=== PATIENT | female | born 1980 | race Caucasian/White ===

== ENCOUNTER → 2016-12-03 | Outpatient (REF) | payer BC ==
[2016-12-03 17:06] LABS: FREE T4 1.16 NG/DL (0.76-1.46)
== END ==
LOC: M LABDRAW1 15:38
PROVIDERS: ATTEND Internal Medicine Endocrinology, Diabetes & Metabolism
DX: E05.00 Thyrotoxicosis with diffuse goiter without thyrotoxic crisis or storm (principal)

== ENCOUNTER → 2017-02-14 | Outpatient (REF) | payer BC ==
[2017-02-14 16:44] LABS: FREE T4 1.28 NG/DL (0.76-1.46)
== END ==
LOC: M LABDRAW1 15:53
PROVIDERS: ATTEND Internal Medicine Endocrinology, Diabetes & Metabolism
DX: E05.00 Thyrotoxicosis with diffuse goiter without thyrotoxic crisis or storm (principal)

== ENCOUNTER → 2017-03-05 | Outpatient (REF) | payer BC ==
[2017-03-05 17:45] LABS: PROGESTERONE 32.7 NG/ML
== END ==
LOC: M LAB REF 12:42
PROVIDERS: ATTEND Obstetrics & Gynecology
DX: O36.80X0 Pregnancy with inconclusive fetal viability, not applicable or unspecified (principal); Z3A.00 Weeks of gestation of pregnancy not specified

== ENCOUNTER → 2017-03-08 | Outpatient (REF) | payer BC | LOC: M LABDRAWC 12:04 | PROVIDERS: ATTEND Obstetrics & Gynecology | DX: O02.81 Inappropriate change in quantitative human chorionic gonadotropin (hCG) in early pregnancy (principal) ==

== ENCOUNTER → 2017-03-15 | Outpatient (REF) | payer BC | LOC: M LABDRAWC 11:20 | PROVIDERS: ATTEND Obstetrics & Gynecology | DX: O02.81 Inappropriate change in quantitative human chorionic gonadotropin (hCG) in early pregnancy (principal) ==

== ENCOUNTER → 2017-03-28 | Outpatient (REF) | payer BC ==
[2017-03-28 17:51] LABS: MEAN CORPUSCULAR HGB CONC 34.2 g/dl (32.0-36.5); MEAN CORPUSCULAR VOLUME 90.8 fl (80.0-96.0); RED CELL DISTRIBUTION WIDTH 13.3 % (11.5-14.5); WHITE BLOOD COUNT 5.3 K/mm3 (4.0-10.0)
== END ==
LOC: M LABDRAWC 16:41
PROVIDERS: ATTEND Obstetrics & Gynecology
DX: O36.80X0 Pregnancy with inconclusive fetal viability, not applicable or unspecified (principal)

== ENCOUNTER → 2017-04-01 | Outpatient (REF) | payer BC | LOC: M LAB REF 16:35 | PROVIDERS: ATTEND Obstetrics & Gynecology | DX: Z34.91 Encounter for supervision of normal pregnancy, unspecified, first trimester (principal) ==

== ENCOUNTER → 2017-04-25 | Outpatient (REF) | payer BC ==
[2017-04-26 12:32] LABS: FREE T4 1.46 NG/DL (0.76-1.46)
== END ==
LOC: M LABDRAWC 11:41
PROVIDERS: ATTEND Internal Medicine Endocrinology, Diabetes & Metabolism
DX: E89.0 Postprocedural hypothyroidism (principal)

== ENCOUNTER → 2017-06-14 | Outpatient (REF) | payer BC ==
[2017-06-14 12:12] LABS: FREE T4 1.66 NG/DL (0.76-1.46)
== END ==
LOC: M LAB REF 08:40
PROVIDERS: ATTEND Internal Medicine Endocrinology, Diabetes & Metabolism
DX: E89.0 Postprocedural hypothyroidism (principal)

== ENCOUNTER → 2017-07-19 | Outpatient (REF) | payer BC | LOC: M LAB REF 11:15 | PROVIDERS: ATTEND Internal Medicine Endocrinology, Diabetes & Metabolism | DX: E89.0 Postprocedural hypothyroidism (principal) ==

== ENCOUNTER → 2017-08-14 | Outpatient (CLI) | payer BC ==
[2017-08-14 11:54] LABS: MEAN CORPUSCULAR HEMOGLOBIN 28.3 pg (27.0-33.0); MEAN CORPUSCULAR HGB CONC 32.8 g/dl (32.0-36.5); MEAN CORPUSCULAR VOLUME 86.2 fl (80.0-96.0); PLATELET COUNT, AUTOMATED 191 10^3/uL (150-450); RED CELL DISTRIBUTION WIDTH 12.8 % (11.5-14.5); WHITE BLOOD COUNT 10.4 10^3/uL (4.0-10.0)
== END ==
LOC: M LAB 09:24
PROVIDERS: ATTEND Obstetrics & Gynecology
DX: Z34.82 Encounter for supervision of other normal pregnancy, second trimester (principal); Z3A.24 24 weeks gestation of pregnancy

== ENCOUNTER → 2017-09-03 | Outpatient (REF) | payer BC ==
[2017-09-03 16:15] LABS: FREE T4 1.36 NG/DL (0.76-1.46)
== END ==
LOC: M LAB REF 15:18
PROVIDERS: ATTEND Obstetrics & Gynecology
DX: Z34.83 Encounter for supervision of other normal pregnancy, third trimester (principal)

== ENCOUNTER → 2017-10-10 | Outpatient (REF) | payer BC ==
[2017-10-10 13:17] LABS: MEAN CORPUSCULAR HEMOGLOBIN 25.3 pg (27.0-33.0); MEAN CORPUSCULAR HGB CONC 31.9 g/dl (32.0-36.5); MEAN CORPUSCULAR VOLUME 79.4 fl (80.0-96.0); PLATELET COUNT, AUTOMATED 200 10^3/uL (150-450); RED CELL DISTRIBUTION WIDTH 14.6 % (11.5-14.5); WHITE BLOOD COUNT 7.6 10^3/uL (4.0-10.0)
[2017-10-10 13:51] LABS: ALT/SGPT 29 U/L (12-78); AST/SGOT 33 U/L (7-37); BILIRUBIN,TOTAL < 0.1 MG/DL (0.2-1.0); CREATININE FOR GFR 0.54 MG/DL (0.55-1.02); GLOMERULAR FILTRATION RATE > 60.0 (>60); URIC ACID 2.9 MG/DL (2.6-6.0)
== END ==
LOC: M LAB REF 12:52
PROVIDERS: ATTEND Obstetrics & Gynecology
DX: O09.893 Supervision of other high risk pregnancies, third trimester (principal); O09.513 Supervision of elderly primigravida, third trimester; Z3A.00 Weeks of gestation of pregnancy not specified

== ENCOUNTER → 2017-10-11 | Outpatient (REF) | payer BC | LOC: M LAB REF 12:19 | PROVIDERS: ATTEND Obstetrics & Gynecology | DX: O09.893 Supervision of other high risk pregnancies, third trimester (principal); O09.513 Supervision of elderly primigravida, third trimester ==

== ENCOUNTER → 2017-10-15 | Outpatient (REF) | payer BC | LOC: M LAB REF 12:57 | PROVIDERS: ATTEND Obstetrics & Gynecology | DX: O09.513 Supervision of elderly primigravida, third trimester (principal); Z3A.36 36 weeks gestation of pregnancy ==

== ENCOUNTER 2017-11-05 05:52 | Inpatient (IN) | payer BC ==
[2017-11-05 07:03] LABS: HEMATOCRIT 37.3 % (36.0-47.0); HEMOGLOBIN 12.3 g/dl (12.0-16.0); MEAN CORPUSCULAR HEMOGLOBIN 26.5 pg (27.0-33.0); MEAN CORPUSCULAR VOLUME 80.4 fl (80.0-96.0); PLATELET COUNT, AUTOMATED 133 10^3/uL (150-450); RED BLOOD COUNT 4.64 10^6/uL (4.00-5.40); RED CELL DISTRIBUTION WIDTH 17.8 % (11.5-14.5); WHITE BLOOD COUNT 6.9 10^3/uL (4.0-10.0)
[2017-11-05 07:22] LABS: ALT/SGPT 18 U/L (12-78); AST/SGOT 26 U/L (7-37); BILIRUBIN,TOTAL < 0.1 MG/DL (0.2-1.0); CREATININE FOR GFR 0.64 MG/DL (0.55-1.02); GLOMERULAR FILTRATION RATE > 60.0 (>60); LDH LACTATE DEHYDROGENASE 200 U/L (84-246); URIC ACID 3.5 MG/DL (2.6-6.0)
[2017-11-05] MEDS ORDERED: LR 1,000 ML IV (08:22)
[2017-11-05] MEDS ORDERED: OXYTOCIN 30 UNITS IN 0.9% NaCl 500ML IV BAG (J2590) As Ordered (08:24)
[2017-11-05] MEDS ORDERED: OXYTOCIN DRIP 30 UNITS in APPROPRIATE DILUENT 1 EA IV (08:30)
[2017-11-05 12:10] LABS: HEMATOCRIT 38.8 % (36.0-47.0); HEMOGLOBIN 12.7 g/dl (12.0-16.0); MEAN CORPUSCULAR HEMOGLOBIN 26.6 pg (27.0-33.0); MEAN CORPUSCULAR HGB CONC 32.7 g/dl (32.0-36.5); MEAN CORPUSCULAR VOLUME 81.2 fl (80.0-96.0); PLATELET COUNT, AUTOMATED 144 10^3/uL (150-450); RED BLOOD COUNT 4.78 10^6/uL (4.00-5.40); RED CELL DISTRIBUTION WIDTH 18.2 % (11.5-14.5); WHITE BLOOD COUNT 7.3 10^3/uL (4.0-10.0)
[2017-11-05 12:34] LABS: ALT/SGPT 19 U/L (12-78); AST/SGOT 27 U/L (7-37); BILIRUBIN,TOTAL 0.1 MG/DL (0.2-1.0); GLOMERULAR FILTRATION RATE > 60.0 (>60); LDH LACTATE DEHYDROGENASE 196 U/L (84-246); URIC ACID 3.5 MG/DL (2.6-6.0)
[2017-11-05] MEDS ORDERED: FENTANYL 2MCG/ML ROPIVACAINE 0.2% IN 0.9% NACL 200ML IVBAG As Ordered (14:18)
[2017-11-05] MEDS ORDERED: FENTANYL/ROPIVACAINE/NACL BAG 200 ML EPIDURAL (16:00)
[2017-11-05] MEDS ORDERED: ONDANSETRON 4MG/2ML VIAL (J2405) IV (16:00)
[2017-11-05] MEDS ORDERED: REFRIGERATOR IV KEYS XX (16:00)
[2017-11-05] MEDS ORDERED: ePHEDrine SULFATE 25 MG/5 ML(5MG/ML) SYRINGE IV (16:00)
[2017-11-05] MEDS ORDERED: EPIDURAL/PCA KEYS XX (16:00)
[2017-11-05] MEDS ORDERED: EPIDURAL COMMENT XX (16:00)
[2017-11-05] MEDS ORDERED: NALOXONE INJ 0.4 MG/1 ML VIAL (J2310) IV (16:00)
[2017-11-05] MEDS ORDERED: diphenhydrAMINE INJ 50MG/ML VIAL (J1200) IV (16:00)
[2017-11-05] MEDS ORDERED: ANUSOL HC CREAM 30GM TOP (19:45)
[2017-11-05] MEDS ORDERED: RHOGAM 300 MCG (1500 IU) INJ (J2790) IM (19:45)
[2017-11-05] MEDS ORDERED: METHYLERGONOVINE MALEATE 0.2 MG TAB PO (19:45)
[2017-11-05] MEDS ORDERED: MOM 30ML SUSPENSION UDC PO (19:45)
[2017-11-05] MEDS ORDERED: MEASLES,MUMPS,RUBELLA VACCINE INJ (MMR-II) (90707) SC (19:45)
[2017-11-05] MEDS ORDERED: DIBUCAINE 1% OINTMENT 30GM TOP (19:45)
[2017-11-05 19:50] LABS: CORD GAS ABE A -7.2; CORD GAS HCO3 A 17.5 MEQ/L; CORD GAS O2 SAT A 76.9 %; CORD GAS PCO2 A 33.4 mmHg; CORD GAS PH A 7.336 UNITS; CORD GAS PO2 A 34.5 mmHg; CORD GAS SBC A 18.2 MEQ/L; CORD GAS TCO2 A 18.5 MEQ/L
[2017-11-05 19:51] LABS: CORD GAS ABE V -7.7; CORD GAS HCO3 V 17.6 MEQ/L; CORD GAS PCO2 V 35.6 mmHg; CORD GAS PH V 7.312 UNITS; CORD GAS PO2 V 40.1 mmHg; CORD GAS TCO2 V 18.7 MEQ/L
[2017-11-05] MEDS: IBUPROFEN 800 MG TAB PO (21:00)
[2017-11-05] MEDS: DOCUSATE SODIUM 100 MG CAP PO (22:03)
[2017-11-05] MEDS: ACETAMINOPHEN 500 MG TAB PO (22:04)
[2017-11-06] MEDS: OXYTOCIN DRIP 30 UNITS in APPROPRIATE DILUENT 1 EA IV (00:54)
[2017-11-06] MEDS: LEVOTHYROXINE 125MCG TABLET (0.125MG) PO (05:36)
[2017-11-06 07:10] LABS: HEMATOCRIT 33.5 % (36.0-47.0); HEMOGLOBIN 11.1 g/dl (12.0-16.0); MEAN CORPUSCULAR HEMOGLOBIN 26.5 pg (27.0-33.0); MEAN CORPUSCULAR HGB CONC 33.1 g/dl (32.0-36.5); PLATELET COUNT, AUTOMATED 131 10^3/uL (150-450); RED BLOOD COUNT 4.19 10^6/uL (4.00-5.40); RED CELL DISTRIBUTION WIDTH 18.2 % (11.5-14.5); WHITE BLOOD COUNT 13.9 10^3/uL (4.0-10.0)
[2017-11-06 07:26] LABS: ALT/SGPT 22 U/L (12-78); AST/SGOT 47 U/L (7-37); BILIRUBIN,TOTAL 0.2 MG/DL (0.2-1.0); CREATININE FOR GFR 0.68 MG/DL (0.55-1.02); GLOMERULAR FILTRATION RATE > 60.0 (>60); LDH LACTATE DEHYDROGENASE 238 U/L (84-246); URIC ACID 4.1 MG/DL (2.6-6.0)
[2017-11-06] MEDS: IBUPROFEN 800 MG TAB PO ×2 (07:37→21:12)
[2017-11-06] MEDS: DOCUSATE SODIUM 100 MG CAP PO ×2 (07:38→21:12)
[2017-11-06] MEDS: PRENATAL VITAMINS CHEWABLE TABLET PO (07:38)
[2017-11-07] MEDS: LEVOTHYROXINE 125MCG TABLET (0.125MG) PO (06:06)
[2017-11-07] MEDS: IBUPROFEN 800 MG TAB PO (06:06)
[2017-11-07] MEDS: PRENATAL VITAMINS CHEWABLE TABLET PO (08:24)
[2017-11-07] MEDS: DOCUSATE SODIUM 100 MG CAP PO (08:24)
== END 2017-11-07 10:45 | disposition home or self-care (01) | DRG 560 ==
LOC: M LDI 05:52 → M OBS 22:22
PROC: 10E0XZZ Delivery of Products of Conception, External Approach (ICD-10-PCS; principal; 2017-11-05)
PROC: 0UQMXZZ Repair Vulva, External Approach (ICD-10-PCS; 2017-11-05)
PROC: 3E033VJ Introduction of Other Hormone into Peripheral Vein, Percutaneous Approach (ICD-10-PCS; 2017-11-05)
PROC: 10907ZC Drainage of Amniotic Fluid, Therapeutic from Products of Conception, Via Natural or Artificial Opening (ICD-10-PCS; 2017-11-05)
DX: O14.04 Mild to moderate pre-eclampsia, complicating childbirth (principal); D69.6 Thrombocytopenia, unspecified; O99.12 Other diseases of the blood and blood-forming organs and certain disorders involving the immune mechanism complicating childbirth; O99.284 Endocrine, nutritional and metabolic diseases complicating childbirth; E03.9 Hypothyroidism, unspecified; O71.82 Other specified trauma to perineum and vulva; Z37.0 Single live birth; Z3A.39 39 weeks gestation of pregnancy

== ENCOUNTER → 2017-12-24 | Outpatient (REF) | payer BC ==
[2017-12-24 12:08] LABS: FREE T4 1.39 NG/DL (0.76-1.46); THYROID STIMULATING HORMONE 0.081 uIU/ML (0.358-3.740)
== END ==
LOC: M LABDRAWC 11:32
DX: E89.0 Postprocedural hypothyroidism (principal)
CPT/HCPCS: 84443

== ENCOUNTER → 2018-03-11 | Outpatient (REF) | payer BC ==
[2018-03-11 12:45] LABS: FREE T4 1.48 NG/DL (0.76-1.46)
== END ==
LOC: M LABDRAWC 11:31
DX: E89.0 Postprocedural hypothyroidism (principal)
CPT/HCPCS: 84443

== ENCOUNTER → 2018-06-05 | Outpatient (REF) | payer BC ==
[2018-06-05 18:18] LABS: FREE T4 1.21 NG/DL (0.76-1.46)
== END ==
LOC: M LABDRAWC 16:49
DX: E89.0 Postprocedural hypothyroidism (principal)
CPT/HCPCS: 84443

== ENCOUNTER → 2018-08-15 | Outpatient (REF) | payer BC | LOC: M LABDRAWC 09:07 | DX: E89.0 Postprocedural hypothyroidism (principal) ==

== ENCOUNTER → 2018-12-16 | Outpatient (REF) | payer BC ==
[~2018-12-16] MED LIST: FOLI800C PO; IBUP-1114 PO; LEVO200T4 PO; MAPA500T2 PO; PRENTAB9 PO
[2018-12-17 12:03] LABS: FREE T4 1.48 NG/DL (0.76-1.46); THYROID STIMULATING HORMONE 2.7 uIU/ML (0.358-3.740)
== END ==
LOC: M LABDRAWC 11:12
PROVIDERS: ATTEND Nurse Practitioner Family
DX: E89.0 Postprocedural hypothyroidism (principal)

== ENCOUNTER → 2019-06-29 | Outpatient (REF) | payer BC ==
[2019-06-29 20:15] LABS: FREE T4 1.31 NG/DL (0.76-1.46); THYROID STIMULATING HORMONE 2.07 uIU/ML (0.358-3.740)
== END ==
LOC: M LABDRAWC 18:38
PROVIDERS: ATTEND Nurse Practitioner Family
DX: E89.0 Postprocedural hypothyroidism (principal)